=== PATIENT | male | born 1970 | race Caucasian/White ===

== ENCOUNTER 2022-07-09 15:29 | Emergency (ER) | payer OTHER, MEDICARE ==
[~2022-07-09] VITALS: Ht 182.9 cm; Wt 112.2 kg
--- NOTE | ~2022-07-09 | EKG ---
[facility] [address] [facility] [place], [place] [address] Draft EK completed, results pending confirmation PATIENT NAME: EVELEYDI Electrocardiogram DATE OF : 70 PHYSICIAN: PRELIMINARY REPORT #: [id number] REPORT IS CONFIDENTIAL AND NOT TO BE RELEASED WITHOUT AUTHORIZATION
[2022-07-09] MEDS ORDERED: METFORMIN HCL500 MG PO (17:45)
[2022-07-09] MEDS ORDERED: NEURONTIN300 MG PO (17:45)
[2022-07-09] MEDS ORDERED: TRAZODONE HCL50 MG PO (17:45)
[2022-07-09] MEDS ORDERED: PROTONIX20 MG PO (17:46)
[2022-07-09] MEDS ORDERED: ZESTRIL20 MG PO (17:46)
[2022-07-09] MEDS ORDERED: LIPITOR40 MG PO (17:46)
[2022-07-09] MEDS ORDERED: NOVOLOG100 UNIT/2 SUB-Q (17:47)
[2022-07-09] MEDS ORDERED: GLIPIZIDE ER5 MG PO (17:47)
== END 2022-07-09 21:27 | disposition home or self-care (01) ==
LOC: ED 15:29
DX: B34.9 Viral infection, unspecified (principal); R07.89 Other chest pain; E11.40 Type 2 diabetes mellitus with diabetic neuropathy, unspecified; I10 Essential (primary) hypertension; Z20.822 Contact with and (suspected) exposure to COVID-19; Z79.4 Long term (current) use of insulin; Z79.899 Other long term (current) drug therapy
CPT/HCPCS: 36415; 80053; 84484; 85025; 87502; 87880; 93005; 93010; 96372; 99283-25; J1885; U0003